=== PATIENT | female | born 1965 | race Caucasian/White ===

== ENCOUNTER 2017-10-25 10:31 | Emergency (ER) | payer OTHER ==
[~2017-10-25] VITALS: Ht 165.1 cm; Wt 71.5 kg
[2017-10-25 10:37] VITALS: BP 157/77; PULSE 75; RESP 16; TEMP 97.5; O2SAT 99
[2017-10-25] MEDS ORDERED: LOSA50TA2 PO (10:50)
[2017-10-25] MEDS ORDERED: HYDR25TA5 PO (10:50)
[2017-10-25] MEDS ORDERED: DIPH25CA PO (10:50)
[2017-10-25] MEDS ORDERED: GABA300C5 PO (10:50)
--- NOTE | 2017-10-25 11:21 | PD ---
HPI Chief Complaint: Musculoskeletal Complaint Time Seen by Provider: 11:07 Travel History International Travel<30 days: No Contact w/Intl Traveler<30days: No Traveled to known affect area: No History of Present Illness HPI The patient was seen and examined in the presence of the nurse. This patient complains of a rash on her back. It's been there 3 weeks. She saw her primary physician who prescribed Kenalog cream. It's not helping. PFSH Past Medical History Diminished Hearing: No Hypertension: Yes Influenza Vaccination: No ?: Not Social History Alcohol Use: Yes Tobacco Use: Yes Allergies-Medications (Allergen,Severity, Reaction): Coded Allergies: Sulfa (Sulfonamide Antibiotics) (Verified Allergy, Unknown, 10/25/17) prednisone (Verified Allergy, Unknown, 10/25/17) Reported Meds & Prescriptions Reported Meds & Active Scripts Active Reported Diphenhydramine (Diphenhydramine HCl) 25 Mg Cap 75 Mg PO DAILY PRN Hydrochlorothiazide 25 Mg Tab 25 Mg PO DAILY Losartan-Hydrochlorothiazide 50-12.5 Mg Tab 1 Tab PO DAILY Gabapentin 300 Mg Cap 300 Mg PO TID Review of Systems General / Constitutional: No: Fever HENT: No: Headaches Cardiovascular: No: Chest Pain or Discomfort Physical Exam Narrative SKIN: Focused skin assessment reveals an erythematous rash on the left upper back. There are some lesions that look like classic ringworm lesions. They have erythematous rolled raised borders with central clearing. Skin is warm and dry. Palpation shows no induration or nodules. Psych: Normal mood and affect. Normal insight and judgment. Data Data Last Documented VS Vital Signs Date Time Temp Pulse Resp B/P (MAP) Pulse Ox O2 Delivery O2 Flow Rate FiO2 10/25/17 10:37 97.5 75 16 157/77 (103) 99 MDM Medical Decision Making Medical Screen Exam Complete: Yes Emergency Medical Condition: Yes Medical Record Reviewed: Yes Differential Diagnosis Fungal dermatitis, contact dermatitis, allergic reaction Narrative Course I have reviewed the patient's electronic medical record. Presentation here seems consistent with a fungal rash Recommend she stop the Kenalog cream and use Lotrimin twice daily Diagnosis Primary Impression: Fungal rash of torso Additional Instructions: The patient was advised to follow up with their physician and return if they worsen. Stop steroid cream Apply Lotrimin twice daily which is [id number] Med/Other Pt SpecificInfo: Other Disposition: 01 DISCHARGE HOME Condition: Stable Nadeem Richardson MD Oct 25, 2017 11:21
== END 2017-10-25 11:33 | disposition home or self-care (01) ==
LOC: PHEFT 10:31
DX: B49 Unspecified mycosis (principal); I10 Essential (primary) hypertension; Z88.2 Allergy status to sulfonamides; Z88.5 Allergy status to narcotic agent; Z79.899 Other long term (current) drug therapy
CPT/HCPCS: 99282